=== PATIENT | male | born 2000 | race Caucasian/White ===

== ENCOUNTER 2022-06-12 19:01 | Emergency (ER) | payer MEDICAID ==
[~2022-06-12] VITALS: Ht 172.7 cm; Wt 76.0 kg
[2022-06-12 19:22] VITALS: BP 123/71
[2022-06-12] MEDS ORDERED: IBUPROFEN 600MG TABLET PO ONE (21:00)
[2022-06-12] MEDS ORDERED: IBUP-2029 MT (21:35)
== END 2022-06-12 22:02 | disposition home or self-care (01) ==
LOC: ER 19:01
DX: S40.011A Contusion of right shoulder, initial encounter (principal); S20.211A Contusion of right front wall of thorax, initial encounter; Z88.0 Allergy status to penicillin; X58.XXXA Exposure to other specified factors, initial encounter; Y93.89 Activity, other specified; Y92.89 Other specified places as the place of occurrence of the external cause; Y99.8 Other external cause status
CPT/HCPCS: 71045; 99283